=== PATIENT | female | born 1965 | race Caucasian/White ===

== ENCOUNTER 2016-06-24 10:08 | Outpatient (CLI) | payer OTHER, BC | END 2016-06-24 10:09 | disposition home or self-care (01) | DX: Z12.31 Encounter for screening mammogram for malignant neoplasm of breast (principal) ==

== ENCOUNTER 2016-07-07 09:33 | Outpatient (CLI) | payer OTHER, BC | END 2016-07-07 09:34 | disposition home or self-care (01) | DX: M17.12 Unilateral primary osteoarthritis, left knee (principal) ==

== ENCOUNTER 2016-08-01 15:32 | Outpatient (CLI) | payer OTHER, BC | END 2016-08-01 15:33 | disposition home or self-care (01) | DX: M25.561 Pain in right knee (principal) ==

== ENCOUNTER 2017-03-03 10:02 | Outpatient (CLI) | payer OTHER, BC ==
--- NOTE | 2017-03-03 10:37 | XRAY Report ---
TWO-VIEW RIGHT FOREARM: 03/03/2017 CLINICAL INDICATION: Pain. FINDINGS: Frontal and lateral views of the right forearm demonstrate no evidence of fracture or disl ocation. No radiopaque foreign body is seen in the soft tissues. The visualized joint spaces are un remarkable. IMPRESSION: NORMAL RIGHT FOREARM. JOB #: [id number] EXT JOB #:[id number]
== END 2017-03-03 10:03 | disposition home or self-care (01) ==
LOC: DI 10:02
PROVIDERS: ATTEND Specialist
DX: M79.631 Pain in right forearm (principal)